=== PATIENT | female | born 1955 | race Caucasian/White ===

== ENCOUNTER 2017-04-14 23:50 | Emergency (ER) | payer OTHER ==
[~2017-04-14] VITALS: Ht 160 cm; Wt 98.4 kg
[2017-04-14 23:57] VITALS: BP 134/87
--- NOTE | 2017-04-15 00:26 | NUR ---
PT TAKEN TO CT FROM THE LOBBY
--- NOTE | 2017-04-15 00:36 | NUR ---
PT RETURN FROM CT TO ER LOBBY
--- NOTE | 2017-04-15 01:12 | NUR ---
PT TAKEN TO BED 12
--- NOTE | 2017-04-15 01:14 | NUR ---
CAME IN WITH C/O HEAD PAIN , S/P FELL TO A TILE FLOOR, NO LOC NOR VOMITING NOTED. SEEN IN AN URGENT CARE TODAY AND FOR CT SCAN.
--- NOTE | 2017-04-15 01:35 | NUR ---
Dr. Lopez evaluating patient at bedside.
--- NOTE | 2017-04-15 01:50 | NUR ---
RESULTS BACK AND NOTED BY ERMD AND FOR D/C
[2017-04-15 01:53] VITALS: BP 134/87
--- NOTE | 2017-04-15 01:53 | NUR ---
Patient discharged with v/s stable. Written and verbal after care instructions given and explained. Patient verbalized understanding. Ambulatory with steady gait. All questions addressed prior to discharge. Advised to follow up with PMD.
== END 2017-04-15 01:53 | disposition home or self-care (01) ==
LOC: MED 23:50
DX: S09.90XA Unspecified injury of head, initial encounter (principal); Z88.0 Allergy status to penicillin; Z88.2 Allergy status to sulfonamides; W01.198A Fall on same level from slipping, tripping and stumbling with subsequent striking against other object, initial encounter; Y93.89 Activity, other specified; Y92.89 Other specified places as the place of occurrence of the external cause; Y99.8 Other external cause status
CPT/HCPCS: 70450; 81002; 81025; 99284